=== PATIENT | male | born 1985 ===

== ENCOUNTER 2022-07-24 19:26 | Emergency (ER) | payer MEDICARE, MEDICAID ==
[~2022-07-24] VITALS: Ht 170.2 cm; Wt 68.1 kg
[2022-07-24 19:42] VITALS: BP 137/72; PULSE 124; TEMP 98.5
== END 2022-07-24 22:42 | disposition home or self-care (01) ==
LOC: COL.ER 19:26
DX: R44.0 Auditory hallucinations (principal); R44.1 Visual hallucinations; Z86.59 Personal history of other mental and behavioral disorders; Z28.311 Partially vaccinated for COVID-19